=== PATIENT | female | born 1995 | race Caucasian/White ===

== ENCOUNTER → 2016-07-11 | Outpatient (CLI) | payer BC, OTHER ==
--- NOTE | 2016-07-12 08:18 | MR ---
EXAMINATION TYPE: MR cervical spine wo/w con DATE OF EXAM: 07/11/2016 2:35 PM COMPARISON: NONE HISTORY: 21-year-old female with upper and lower extremity paresthesia, numbness in arms and legs, he adache. Technique: Multiplanar, multisequence images of the cervical spine were obtained before and after adm inistration of 12 mL intravenous MultiHance gadolinium contrast. FINDINGS: There is some rightward tilt of the head which may be positional. Correlate to exclude a levoconvex s coliosis of the thoracic spine. Alignment is maintained. No craniocervical junction abnormality, predental space widening, or prevertebral soft tissue swellin g. No suspicious bone marrow replacement. No focal disc herniation or significant degenerative change seen. No significant spinal canal or neuroforaminal stenosis. Normal course, caliber, and signal intensity of the cervical cord. No abnormal enhancement within the spinal canal. IMPRESSION: 1. Rightward tilt of the patient's head may be positional. Correlate to exclude a levoconvex scoliosi s of the thoracic spine. 2. Otherwise, unremarkable MRI of the cervical spine.
== END | disposition home or self-care (01) ==
LOC: RADMRIMAIN 13:36
PROVIDERS: ATTEND Psychiatry & Neurology Neurology
DX: R20.8 Other disturbances of skin sensation (principal); R27.0 Ataxia, unspecified
CPT/HCPCS: 72156; A9577

== ENCOUNTER 2016-07-15 21:30 | Emergency (ER) | payer BC, OTHER ==
[2016-07-15 22:00] VITALS: BP 115/68; PULSE 69; RESP 20; TEMP 98
--- NOTE | 2016-07-15 22:07 | ED ---
Fall HPI - General Chief Complaint: Fall Stated Complaint: rib injury Time Seen by Provider: 07/15/16 22:02 Source: patient, RN notes reviewed Mode of arrival: ambulatory - History of Present Illness Initial Comments: 21-year-old female presents emergency Department chief complaint of right-sided rib pain. A week ago patient fell down some stairs at a concert and hit the right side of her ribs on the armrest. Patient patient she has pain. Worse when she takes a deep breath. Patient states her to touch. Patient states that she was concerned due to her history continued pain so she thought that she should be evaluated. Patient denies any recent fever, chills, shortness of breath, chest pain, back pain, abdominal pain, nausea vomiting, numbness or tingling, dysuria or hematuria, constipation or diarrhea, headaches or visual changes, or any other current symptoms. - Related Data Home Medications Medication Instructions Recorded Confirmed Ibuprofen [Motrin] 600 mg PO Q3HR PRN 07/15/16 07/15/16 Previous Rx's Medication Instructions Recorded Hydrocodone/Acetaminophen [Nutley 1 each PO Q6HR PRN #20 tab 07/15/16 5-325] Allergies Allergy/AdvReac Type Severity Reaction Status Date / Time No Known Allergies Allergy Verified 07/15/16 22:20 Review of Systems ROS Statement: Those systems with pertinent positive or pertinent negative responses have been documented in the HPI. ROS Other: All systems not noted in ROS Statement are negative. Past Medical History Additional Past Medical History / Comment(s): Factor V Leiden deficiency , preeclampsia History of Any Multi-Drug Resistant Organisms: None Reported Past Surgical History: Appendectomy Additional Past Surgical History / Comment(s): BMT- CHILD Past Anesthesia/Blood Transfusion Reactions: No Reported Reaction Additional Past Anesthesia/Blood Transfusion Reaction / Comment(s): no hx of blood transfusion Past Psychological History: ADD/ADHD Smoking Status: Former smoker Past Alcohol Use History: Occasional Additional Past Alcohol Use History / Comment(s): QUIT SMOKING 2014. ONLY SMOKED < 1 PP WEEK FOR ABOUT 1 YRS. RECETNLY SEEN IN ER 10/2015 FOR ETOH-SERUM ALCOHOL LEVEL 212 Past Drug Use History: None Reported - Past Family History Mother Sister(s) Additional Family Medical History / Comment(s): mom and sister have factor v as well General Exam Limitations: no limitations General appearance: alert, in no apparent distress Head exam: Present: atraumatic, normocephalic, normal inspection ENT exam: Present: normal exam, mucous membranes moist Neck exam: Present: normal inspection. Absent: tenderness, meningismus, lymphadenopathy Respiratory exam: Present: normal lung sounds bilaterally, chest wall tenderness (Along the right lateral chest). Absent: respiratory distress, wheezes, rales, rhonchi, stridor Cardiovascular Exam: Present: regular rate, normal rhythm, normal heart sounds. Absent: systolic murmur, diastolic murmur, rubs, gallop, clicks Back exam: Present: normal inspection Neurological exam: Present: alert, oriented X3 Psychiatric exam: Present: normal affect, normal mood Skin exam: Present: warm, dry, intact, normal color. Absent: rash Course Vital Signs 07/15/16 21:54 Temperature 98 F Pulse Rate 69 Respiratory 20 Rate Blood Pressure 115/68 O2 Sat by Pulse 100 Oximetry Medical Decision Making - Medical Decision Making 21-year-old female presents for right-sided rib pain after a fall. This time patient underwent an x-ray. This time x-ray does not show any acute fractures. At this time we discussed to give her narcotic we discussed icing the area. We discussed follow-up and return parameters. He stated that she understood all her questions have been answered. She will be discharged. - Radiology Data Radiology results: report reviewed, image reviewed Disposition Clinical Impression: Fall, Contusion of rib on right side Disposition: HOME SELF-CARE Condition: Stable Instructions: Rib Contusion (ED) Additional Instructions: Please use medication as discussed. Please follow up with family doctor if symptoms have not improved over the next two days. Please return to the emergency room if your symptoms increase or worsen or for any other concerns. Prescriptions: Hydrocodone/Acetaminophen [Nutley 5-325] 1 each PO Q6HR PRN #20 tab PRN Reason: Pain Referrals: Eula Lopez MD [Primary Care Provider] - 1-2 days Time of Disposition: 22:27
--- NOTE | 2016-07-15 22:24 | XR ---
EXAMINATION TYPE: XR ribs RT w pa chest xray DATE OF EXAM: 07/15/2016 10:15 PM COMPARISON: NONE HISTORY: ] Pain anterior to posterior after a fall TECHNIQUE: 3 views FINDINGS: Negative for fracture or pneumothorax or pleural effusion. No incidental findings. IMPRESSION: Negative examination.
== END 2016-07-15 22:31 | disposition home or self-care (01) ==
LOC: EC 21:30
DX: S20.211A Contusion of right front wall of thorax, initial encounter (principal); Z87.891 Personal history of nicotine dependence; W10.9XXA Fall (on) (from) unspecified stairs and steps, initial encounter; Y92.009 Unspecified place in unspecified non-institutional (private) residence as the place of occurrence of the external cause
CPT/HCPCS: 99284

== ENCOUNTER → 2020-05-28 | Outpatient (CLI) | payer MEDICAID | END | disposition home or self-care (01) | LOC: LABMAIN 23:23 | PROVIDERS: ATTEND Emergency Medicine | DX: Z20.822 Contact with and (suspected) exposure to COVID-19 (principal) | CPT/HCPCS: 87635 ==

== ENCOUNTER 2020-09-03 16:43 | Emergency (ER) | payer MEDICAID ==
[2020-09-03 16:56] VITALS: PULSE 71; RESP 16; TEMP 98.2
[2020-09-03] MEDS ORDERED: SODIUM CHLORIDE 0.9% 500 ML 500 ML IV STA (17:25)
--- NOTE | 2020-09-03 17:48 | ED ---
General Adult HPI - General Chief complaint: Recheck/Abnormal Lab/Rx Stated complaint: ectopic Source: patient, family, RN notes reviewed Mode of arrival: ambulatory Limitations: no limitations - History of Present Illness Initial comments: 25-year-old well-appearing white female presents to the emergency room with complaints of a possible ectopic on the right. Patient states 2 weeks ago she seen a primary care office and was told that they seen something in the right fallopian tube and had her come back in 2 days for reassessment. She went back he was resolved and he didn't see it. Today she was in the office and they did another ultrasound because she's been having cramping and they found again concern for ectopic . Patient states that she's been having cramping feelings on and off for the past 2 weeks. Patient denies any vaginal bleeding or vaginal discharge. Her last menstrual period was July 07. Patient has a history of factor V leiden deficiency, preeclampsia with previous , has a surgical history of an appendectomy. Patient brought in paperwork from Dr. Huber has had states that there is a pole measuring 3.1 x 2 x 2.8 and was offered surgery or methotrexate. She states that her insurance is [employer] and all she was at [facility] they told her she needed to come here. Patient is willing to have a repeat ultrasound and lab work. Her biggest concern is that she does not want to lose her fallopian tube -: week(s) (2) Location: abdomen Radiation: non-radiation Severity scale (1-10): 2 Quality: other Consistency: intermittent Improves with: none Worsens with: none Associated Symptoms: denies other symptoms Treatments Prior to Arrival: other (Ultrasound at Dr. Huber's office) - Related Data Home Medications Medication Instructions Recorded Confirmed Ibuprofen [Motrin] 600 mg PO Q3HR PRN 07/15/16 07/15/16 Previous Rx's Medication Instructions Recorded Hydrocodone/Acetaminophen [R[place]ledge 1 each PO Q6HR PRN #20 tab 07/15/16 5-325] Allergies Allergy/AdvReac Type Severity Reaction Status Date / Time No Known Allergies Allergy Verified 07/15/16 22:20 Review of Systems ROS Statement: Those systems with pertinent positive or pertinent negative responses have been documented in the HPI. ROS Other: All systems not noted in ROS Statement are negative. Past Medical History Additional Past Medical History / Comment(s): Factor V Leiden deficiency , preeclampsia History of Any Multi-Drug Resistant Organisms: None Reported Past Surgical History: Appendectomy Additional Past Surgical History / Comment(s): BMT- CHILD Past Anesthesia/Blood Transfusion Reactions: No Reported Reaction Additional Past Anesthesia/Blood Transfusion Reaction / Comment(s): no hx of blood transfusion Past Psychological History: ADD/ADHD Smoking Status: Never smoker Past Alcohol Use History: Occasional Past Drug Use History: None Reported - Past Family History Mother Sister(s) Additional Family Medical History / Comment(s): mom and sister have factor v as well General Exam Limitations: no limitations General appearance: alert, in no apparent distress Head exam: Present: atraumatic, normocephalic, normal inspection Eye exam: Present: normal appearance, PERRL, EOMI. Absent: scleral icterus, conjunctival injection, periorbital swelling ENT exam: Present: normal exam, normal oropharynx, mucous membranes moist Neck exam: Present: normal inspection. Absent: tenderness, meningismus, lympha denopathy Respiratory exam: Present: normal lung sounds bilaterally. Absent: respiratory distress, wheezes, rales, rhonchi, stridor, chest wall tenderness, accessory muscle use, decreased breath sounds Cardiovascular Exam: Present: regular rate, normal rhythm, normal heart sounds. Absent: systolic murmur, diastolic murmur, rubs, gallop, clicks GI/Abdominal exam: Present: soft, normal bowel sounds. Absent: distended, te nderness, guarding, rebound, rigid Extremities exam: Present: normal inspection, full ROM, normal capillary refill. Absent: tenderness, pedal edema, joint swelling, calf tenderness Back exam: Present: normal inspection Neurological exam: Present: alert, oriented X3, CN II-XII intact Psychiatric exam: Present: normal affect, normal mood Skin exam: Present: warm, dry, intact, normal color. Absent: rash, cyanosis, diaphoretic, erythema, petechiae, pallor, mottled Course Vital Signs 09/03/20 16:54 Temperature 98.2 F Pulse Rate 71 Respiratory 16 Rate Blood Pressure 122/84 O2 Sat by Pulse 100 Oximetry Medical Decision Making - Medical Decision Making Transvaginal and transabdominal ultrasound shows a questionable area of mixed echogenicity seen within the right ovary measuring 3 x 2.1 x 2.0. There is no pole visualized, yolk sac is not seen. There is a small intrauterine fluid collection measuring 14 x 9 mm which could be a gestational sac but there is no yolk sac or pole seen. there is bilateral free fluid in the pelvis. An early ectopic is not excluded at [place] [address].6. Her beta count from previous records August 29 was 4712. Her last menstrual period 07/07/2020. Patient denies any vaginal bleeding at this time and was offered surgical intervention or methotrexate. Patient has prescription for the methotrexate but has [facility] insurance and is why she came to the emergency room. Spoke with Dr. Gillespie was recommended that the patient follow-up with her doctor in the morning and have the methotrexate called into the infusion center. Patient directed to return to emergency room if she develops any pain or vaginal bleeding. Vital signs are stable. Patient appears comfortable. Patient and significant other is comfortable with this discharge instructions. Dr. Jeffers aware and agreeable to this plan. - Lab Data Result diagrams: 09/03/20 17:38 09/03/20 17:38 Lab Results 09/03/20 09/03/20 09/03/20 Range/Units 17:38 17:38 17:38 WBC 8.4 (3.8-10.6) k/uL RBC 3.78 L (3.80-5.40) m/uL Hgb 12.1 (11.4-16.0) gm/dL Hct 34.0 (34.0-46.0) % MCV 89.9 (80.0-100.0) fL MCH 32.1 (25.0-35.0) pg MCHC 35.7 (31.0-37.0) g/dL RDW 12.5 (11.5-15.5) % Plt Count 217 (150-450) k/uL MPV 7.1 Neutrophils % 54 % Lymphocytes % 36 % Monocytes % 4 % Eosinophils % 4 % Basophils % 1 % Neutrophils # 4.5 (1.3-7.7) k/uL Lymphocytes # 3.0 (1.0-4.8) k/uL Monocytes # 0.4 (0-1.0) k/uL Eosinophils # 0.3 (0-0.7) k/uL Basophils # 0.0 (0-0.2) k/uL PT 10.6 (9.0-12.0) sec INR 1.0 (<1.2) Sodium 137 (137-145) mmol/L Potassium 3.8 (3.5-5.1) mmol/L Chloride 108 H (98-107) mmol/L Carbon Dioxide 21 L (22-30) mmol/L Anion Gap 8 mmol/L BUN 10 (7-17) mg/dL Creatinine 0.56 (0.52-1.04) mg/dL Est GFR (CKD-EPI)AfAm >90 (>60 ml/min/1.73 sqM) Est GFR (CKD-EPI)NonAf >90 (>60 ml/min/1.73 sqM) Glucose 90 (74-99) mg/dL Calcium 9.6 (8.4-10.2) mg/dL Total Bilirubin 0.3 (0.2-1.3) mg/dL AST 28 (14-36) U/L ALT 12 (4-34) U/L Alkaline Phosphatase 44 (38-126) U/L Total Protein 6.7 (6.3-8.2) g/dL Albumin 4.3 (3.5-5.0) g/dL HCG, Quant 03386.6 mIU/mL Blood Type Blood Type Recheck Bld Type Recheck Status Antibody Screen Spec Expiration Date 09/03/20 09/03/20 Range/Units 17:38 17:38 WBC (3.8-10.6) k/uL RBC (3.80-5.40) m/uL Hgb (11.4-16.0) gm/dL Hct (34.0-46.0) % MCV (80.0-100.0) fL MCH (25.0-35.0) pg MCHC (31.0-37.0) g/dL RDW (11.5-15.5) % Plt Count (150-450) k/uL MPV Neutrophils % % Lymphocytes % % Monocytes % % Eosinophils % % Basophils % % Neutrophils # (1.3-7.7) k/uL Lymphocytes # (1.0-4.8) k/uL Monocytes # (0-1.0) k/uL Eosinophils # (0-0.7) k/uL Basophils # (0-0.2) k/uL PT (9.0-12.0) sec INR (<1.2) Sodium (137-145) mmol/L Potassium (3.5-5.1) mmol/L Chloride (98-107) mmol/L Carbon Dioxide (22-30) mmol/L Anion Gap mmol/L BUN (7-17) mg/dL Creatinine (0.52-1.04) mg/dL Est GFR (CKD-EPI)AfAm (>60 ml/min/1.73 sqM) Est GFR (CKD-EPI)NonAf (>60 ml/min/1.73 sqM) Glucose (74-99) mg/dL Calcium (8.4-10.2) mg/dL Total Bilirubin (0.2-1.3) mg/dL AST 27 (14-36) U/L ALT 12 (4-34) U/L Alkaline Phosphatase (38-126) U/L Total Protein (6.3-8.2) g/dL Albumin (3.5-5.0) g/dL HCG, Quant mIU/mL Blood Type A Positive Blood Type Recheck A Pos Bld Type Recheck Status No Antibody Screen NEGATIVE Spec Expiration Date 09/06/20202337 Disposition Clinical Impression: Ectopic Disposition: HOME SELF-CARE Condition: Fair Instructions (If sedation given, give patient instructions): Ectopic (DC) Additional Instructions: Return to the emergency room if he develops any abdominal pain. Follow-up with Dr. Huber in the morning and have her call in the prescription for methotrexate to the infusion center. Is patient prescribed a controlled substance at d/c from ED?: No Referrals: Eula Lopez MD [Primary Care Provider] - 1-2 days Miranda Huber MD [STAFF PHYSICIAN] - 1-2 days Time of Disposition: 20:54
[2020-09-03 17:59] LABS: Basophils % (A) 1 %; Eosinophils # (A) 0.3 k/uL (0-0.7); Eosinophils % (A) 4 %; HGB 12.1 gm/dL (11.4-16.0); Lymphocytes % (A) 36 %; MCH 32.1 pg (25.0-35.0); MCHC 35.7 g/dL (31.0-37.0); MCV 89.9 fL (80.0-100.0); Mean Platelet Volume 7.1; Monocytes # (A) 0.4 k/uL (0-1.0); Monocytes % (A) 4 %; Neutrophils # (A) 4.5 k/uL (1.3-7.7); Neutrophils % (A) 54 %; Platelet Count 217 k/uL (150-450); RBC 3.78 m/uL (3.80-5.40); RDW 12.5 % (11.5-15.5); WBC 8.4 k/uL (3.8-10.6)
[2020-09-03 18:07] LABS: Prothrombin Time 10.6 sec (9.0-12.0)
[2020-09-03 18:11] LABS: ALT 12 U/L (4-34); AST 28 U/L (14-36); African American GFR (CKD) >90 (>60 ml/min/1.73 sqM); Albumin 4.3 g/dL (3.5-5.0); Alkaline Phosphatase 44 U/L (38-126); Anion Gap 8 mmol/L; Blood Urea Nitrogen 10 mg/dL (7-17); Calcium 9.6 mg/dL (8.4-10.2); Carbon Dioxide 21 mmol/L (22-30); Chloride 108 mmol/L (98-107); Glucose 90 mg/dL (74-99); Non-African American GFR(CKD) >90 (>60 ml/min/1.73 sqM); Potassium 3.8 mmol/L (3.5-5.1); Sodium 137 mmol/L (137-145); Total Bilirubin 0.3 mg/dL (0.2-1.3); Total Protein 6.7 g/dL (6.3-8.2)
[2020-09-03 18:28] LABS: HCG,Quantitative Serum 13791.6 mIU/mL
--- NOTE | 2020-09-03 19:36 | US ---
EXAMINATION TYPE: Transabdominal DATE OF EXAM: 09/03/2020 7:12 PM COMPARISON: US CLINICAL HISTORY: Rule out ectopic. Pain. Rule out ectopic. Hx miscarriage, D and C. . EXAM PERFORMED: Transvaginal (TV) and Transabdominal (TA) EXAM MEASUREMENTS: GESTATIONAL AGE / DATING Physician Established: Not yet established. Dates by LMP: (8 weeks/2 days) EDC: 04/13/2021 Dates by First Scan: This is first scan at this facility for this . Dates by Current Scan for: (5 weeks/1 day) EDC: 05/05/2021 MATERNAL ANATOMY Uterus: 7.3 x 6.0 x 4.5 cm. Retroverted. Subcentimeter anechoic area seen in cervix. Right Ovary: 3.4 x 2.6 x 2.3 cm. *Questionable area of mixed echogenicity seen within the right ovary: 3.0 x 2.1 x 2.0 cm. This area s hows vascularity, anechoic component, and indistinct hyperechoic components within anechoic area. Left Ovary: 3.3 x 1.8 x 1.5 cm. Subcentimeter anechoic areas seen. Post CDS / Adnexa: Fluid seen in right adnexa: 3.6 x 1.6 x 0.9 cm. Fluid seen in left adnexa: 5.0 x 1 .2 x 1.5 cm. There appear to be hyperechoic areas moving within the fluid, possible bowel within left adnexal fluid. Presence of free fluid: Yes. Presence of corpus luteal cyst: Possible within right ovary versus other diagnosis. Presence of subchorionic bleed: Not seen. GESTATION / SURVEY CRL: No pole visualized at this time. MSD: 1.09 cm. (5 weeks/1 day) Yolk Sac (normal less than 6mm): Not seen. IUP: Gestational sac seen only at this time. *Questionable area of mixed echogenicity and vascularity seen within the right ovary as mentioned ab ove. Exam reason: rule out ectopic . Date of LMP: 07/07/2020 Beta HcG (if available): 13,791.6 mIU/mL IMPRESSION: There is small intrauterine fluid collection measuring 14 x 9 mm. This could be a gestational sac. No yolk sac or pole seen. Bilateral free fluid in the pelvis. Bilateral adnexal findings as above. No definite sign of ectopic gestational sac. Follow-up recommended in 7-10 days to confirm a living fetus. Blighted ovum is possi ble. Early ectopic is not excluded by this exam.
[2020-09-03 20:01] LABS: ALT 12 U/L (4-34); AST 27 U/L (14-36)
[2020-09-03 21:13] VITALS: BP 129/95
== END 2020-09-03 21:13 | disposition home or self-care (01) ==
LOC: EC 16:43
DX: O00.90 Unspecified ectopic pregnancy without intrauterine pregnancy (principal); Z3A.01 Less than 8 weeks gestation of pregnancy
CPT/HCPCS: 36415; 76801; 76817; 80053; 84450; 84460; 84702; 85025; 85610; 86850; 86900; 86901; 96360; 99284

== ENCOUNTER 2020-09-06 12:04 | Observation (INO) | payer MEDICAID ==
[~2020-09-06 12:04] MED LIST: HYDROcodone/APAP 5-325MG 1 EACH TAB PO ONE
[2020-09-06] MEDS ORDERED: NALOXONE 0.4 MG/ML 1 ML VIAL IV PRN (13:10)
--- NOTE | 2020-09-06 13:11 | ED ---
Abdominal Pain HPI - General Chief Complaint: Abdominal Pain Stated Complaint: Ectopic Time Seen by Provider: 09/06/20 12:24 Source: patient, RN notes reviewed Mode of arrival: ambulatory Limitations: no limitations - History of Present Illness Initial Comments: Patient is a 25-year-old female that presents to emergency department for ectopic . She was sent here by her primary care due to continued elevated hCG levels with a suspicious spot on ultrasound in her right side pelvis. She noted her primary care called Dr. Segovia and informed her of the issue. Patient was originally prescribed methotrexate but due to insurance issues and going back and forth between primary care in the hospital the window for that has closed in a laparoscopic procedures needed. Patient is okay and is informed that she will need surgery. She denied any other complaints or issues at this time. - Related Data Home Medications Medication Instructions Recorded Confirmed Ibuprofen [Motrin] 600 mg PO Q3HR PRN 07/15/16 07/15/16 Previous Rx's Medication Instructions Recorded Hydrocodone/Acetaminophen [Pearson 1 each PO Q6HR PRN #20 tab 07/15/16 5-325] Allergies Allergy/AdvReac Type Severity Reaction Status Date / Time No Known Allergies Allergy Verified 09/06/20 12:12 Review of Systems ROS Statement: Those systems with pertinent positive or pertinent negative responses have been documented in the HPI. ROS Other: All systems not noted in ROS Statement are negative. Past Medical History Past Medical History: No Reported History Additional Past Medical History / Comment(s): Factor V Leiden deficiency , preeclampsia History of Any Multi-Drug Resistant Organisms: None Reported Past Surgical History: Appendectomy Additional Past Surgical History / Comment(s): BMT- CHILD Past Anesthesia/Blood Transfusion Reactions: No Reported Reaction Additional Past Anesthesia/Blood Transfusion Reaction / Comment(s): no hx of blood transfusion Past Psychological History: ADD/ADHD Smoking Status: Never smoker Past Alcohol Use History: Occasional Past Drug Use History: None Reported - Past Family History Mother Sister(s) Additional Family Medical History / Comment(s): mom and sister have factor v as well General Exam Limitations: no limitations General appearance: alert, in no apparent distress Head exam: Present: atraumatic, normocephalic, normal inspection Eye exam: Present: normal appearance, PERRL, EOMI. Absent: scleral icterus, conjunctival injection, periorbital swelling Neck exam: Present: normal inspection Respiratory exam: Present: normal lung sounds bilaterally. Absent: respiratory distress, wheezes, rales, rhonchi, stridor Cardiovascular Exam: Present: regular rate, normal rhythm, normal heart sounds. Absent: systolic murmur, diastolic murmur, rubs, gallop, clicks GI/Abdominal exam: Present: soft, tenderness (Lower abdomen), normal bowel sounds. Absent: distended, guarding, rebound, rigid Extremities exam: Present: normal inspection, full ROM, normal capillary refill. Absent: tenderness, pedal edema, joint swelling, calf tenderness Neurological exam: Present: alert, oriented X3 Psychiatric exam: Present: normal affect, normal mood Skin exam: Present: warm, dry, intact, normal color. Absent: rash Course Vital Signs 09/06/20 12:13 Temperature 98.0 F Pulse Rate 75 Respiratory 18 Rate Blood Pressure 114/81 O2 Sat by Pulse 100 Oximetry Medical Decision Making - Medical Decision Making 25-year-old female coming in for admission due to ectopic . Dr. Segovia consulted and instructed we order basic labs with her on file and to get her admitted for surgery later this afternoon. Case discussed with Dr. Sosa, he is agreeable with this plan. Labs ordered. Patient declined the need for any pain medication at this time as she was okay and it was tolerable. Disposition Clinical Impression: Ectopic Disposition: ADMITTED IP TO THIS [facility] Condition: Stable Is patient prescribed a controlled substance at d/c from ED?: No Referrals: Eula Lopez MD [Primary Care Provider] - 1-2 days Time of Disposition: 13:10
[2020-09-06 13:15] LABS: Basophils % (A) 0 %; Eosinophils # (A) 0.3 k/uL (0-0.7); Eosinophils % (A) 3 %; HCT 34.6 % (34.0-46.0); HGB 12.3 gm/dL (11.4-16.0); Lymphocytes # (A) 2.6 k/uL (1.0-4.8); Lymphocytes % (A) 31 %; MCH 31.7 pg (25.0-35.0); MCHC 35.5 g/dL (31.0-37.0); MCV 89.5 fL (80.0-100.0); Mean Platelet Volume 7.1; Monocytes # (A) 0.4 k/uL (0-1.0); Monocytes % (A) 4 %; Neutrophils # (A) 5.1 k/uL (1.3-7.7); Neutrophils % (A) 61 %; Platelet Count 218 k/uL (150-450); RBC 3.87 m/uL (3.80-5.40); RDW 12.7 % (11.5-15.5); WBC 8.5 k/uL (3.8-10.6)
[2020-09-06 13:26] LABS: ALT 12 U/L (4-34); AST 26 U/L (14-36); African American GFR (CKD) >90 (>60 ml/min/1.73 sqM); Albumin 4.2 g/dL (3.5-5.0); Alkaline Phosphatase 42 U/L (38-126); Anion Gap 9 mmol/L; Blood Urea Nitrogen 10 mg/dL (7-17); Calcium 9.2 mg/dL (8.4-10.2); Carbon Dioxide 20 mmol/L (22-30); Chloride 108 mmol/L (98-107); Glucose 88 mg/dL (74-99); Non-African American GFR(CKD) >90 (>60 ml/min/1.73 sqM); Potassium 3.7 mmol/L (3.5-5.1); Sodium 137 mmol/L (137-145); Total Bilirubin 0.2 mg/dL (0.2-1.3); Total Protein 6.7 g/dL (6.3-8.2)
[2020-09-06 13:28] LABS: INR 0.9 (<1.2); Partial Thromboplastin Time 23.5 sec (22.0-30.0); Prothrombin Time 9.8 sec (9.0-12.0)
--- NOTE | 2020-09-06 13:38 | P.HPOB ---
History of Present Illness H&P Date: 09/06/20 Chief Complaint: Ectopic This is a 25-year-old 4 para 0121 that has been being seen at [facility] followed by Dr. Huber. Patient states about 2 weeks ago she was seen by Dr. Huber had an ultrasound for known , positive gestational sac was appreciated and a small right ovarian cyst was noted. She underwent follow- up ultrasound with resolution of the cyst. Patient was once again seen on Wednesday of this week with a right-sided mass being appreciated patient was diagnosed with ectopic , offered methotrexate. Patient presented to [facility] for a second opinion ultrasound was negative therefore patient declined methotrexate treatment. Patient had noted elevation of her beta hCG to 13,000, patient states "it tripled". Patient was then seen on Wednesday at [facility] once again ultrasound was noted to be negative, after she left the appointment at [facility] for her ultrasound she noted increased right- sided pain. Patient had an additional ultrasound today at [facility] revealing a 3.2 cm right adnexal mass. No free fluid was appreciated. Patient states she has increasing right lower quadrant pain. 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 2 prior miscarriages Current ectopic Review of Systems Constitutional: Denies fatigue, Denies fever Ears, nose, mouth and throat: Denies headache Cardiovascular: Reports leg edema Respiratory: Denies dyspnea Gastrointestinal: Denies constipation, Denies diarrhea, Denies nausea, Denies vomiting Genitourinary: Reports as per HPI, Reports Past Medical History Past Medical History: No Reported History Additional Past Medical History / Comment(s): Factor V Leiden deficiency , preeclampsia History of Any Multi-Drug Resistant Organisms: None Reported Past Surgical History: Appendectomy Additional Past Surgical History / Comment(s): BMT- CHILD Past Anesthesia/Blood Transfusion Reactions: No Reported Reaction Additional Past Anesthesia/Blood Transfusion Reaction / Comment(s): no hx of blood transfusion Past Psychological History: ADD/ADHD Smoking Status: Never smoker Past Alcohol Use History: Occasional Past Drug Use History: None Reported - Past Family History Mother Sister(s) Additional Family Medical History / Comment(s): mom and sister have factor v as well Medications and Allergies Home Medications Medication Instructions Recorded Confirmed Type Dextroamphetamine/Amphetamine 30 mg PO DAILY PRN 09/06/20 09/06/20 History [Adderall Xr] Allergies Allergy/AdvReac Type Severity Reaction Status Date / Time No Known Allergies Allergy Verified 09/06/20 13:19 Exam Osteopathic Statement: *. No significant issues noted on an osteopathic structural exam other than those noted in the History and Physical/Consult. Vital Signs Temp Pulse Resp BP Pulse Ox 09/06/20 12:13 98.0 F 75 18 114/81 100 Intake and Output 09/05/20 09/06/20 09/06/20 22:59 06:59 14:59 Other: Weight 68.039 kg Targeted physical exam is performed and is on this date in general this is a well-nourished well-developed female in no acute distress, breathing is noted to be nonlabored, heart has a regular rate and rhythm, abdomen appears soft, pelvic exam is deferred. Patient did have a benign exam with Dr. Huber today in the office. Results Result Diagrams: 09/06/20 13:00 09/06/20 13:07 Assessment and Plan (1) Ectopic Current Visit: Yes Status: Acute Code(s): O00.90 - UNSPECIFIED ECTOPIC WITHOUT INTRAUTERINE SNOMED Code(s): 54610380 (2) Factor V Leiden deficiency Current Visit: No Status: Chronic Code(s): D68.51 - ACTIVATED PROTEIN C RESISTANCE Plan: 25-year-old 4 para 0121 that presents from [facility] with known ectopic . Patient has been seeing Dr. Huber for management of this ectopic . Patient has [employer] insurance and stated she would rather have surgery at [facility]. Patient has significantly elevated beta hCG of 13,042, 3.2 cm right adnexal mass is appreciated in addition. Dr. Huber states there is no free fluid appreciated in the pelvis. Patient appears stable on exam. Recommend operative laparoscopy with a small right salpingectomy, patient is counseled on risks of surgery including but not limited to infection, bleeding, damage to bladder, bowel, ureteric injury. Decreases infertility with removal of fallopian tube are discussed. Patient and significant other stated understanding. Multiple questions are answered. Patient states understanding and wishes to proceed with surgical intervention of her ectopic .
[2020-09-06] MEDS ORDERED: IBUPROFEN IV 800 MG in SODIUM CHLORIDE 0.9% 250 ML IV ONE (14:00)
[2020-09-06] MEDS ORDERED: LACTATED RINGERS 1,000 ML IV ONE ×2 (15:17→17:45)
[2020-09-06 15:19] VITALS: RESP 16
[2020-09-06] MEDS ORDERED: ONDANSETRON 4 MG/2 ML VIAL ONE (15:41)
[2020-09-06] MEDS ORDERED: ONDANSETRON 4 MG/2 ML VIAL IVP ONE (15:45)
[2020-09-06] MEDS ORDERED: DEXAMETHASONE SOD PHOSPHATE 4 MG/ML 1 ML VIAL IVP ONE (15:45)
[2020-09-06] MEDS ORDERED: PROPOFOL 10 MG/ML 20 ML VIAL IV ONE (15:47)
[2020-09-06] MEDS ORDERED: MIDAZOLAM 2 MG/2 ML VIAL ONE (15:47)
[2020-09-06] MEDS ORDERED: GLYCOPYRROLATE 0.2 MG/ML 2 ML VIAL ONE (15:47)
[2020-09-06] MEDS ORDERED: NEOSTIGMINE 1 MG/ML 10 ML VIAL ONE (15:47)
[2020-09-06] MEDS ORDERED: fentaNYL (PF) 50 MCG/ML 2 ML AMP ONE (15:47)
[2020-09-06] MEDS ORDERED: LIDOCAINE 1% INJ 10MG/ML (20 ML MDV) ONE (15:47)
[2020-09-06] MEDS ORDERED: ROCURONIUM 10 MG/ML (5 ML VIAL) IV ONE (15:47)
[2020-09-06] MEDS ORDERED: SUCCINYLCHOLINE CHLORIDE 100 MG/5 ML SYR IV ONE (15:47)
[2020-09-06] MEDS ORDERED: HYDROmorphone (PF) 1 MG/ML ONE (15:47)
[2020-09-06] MEDS ORDERED: BUPIVACAINE (PF) 0.25% 30 ML VIAL SQ ONE ×2 (16:04)
[2020-09-06] MEDS ORDERED: SODIUM CHLORIDE 0.9% 100 ML with ceFAZolin 2,000 MG IV ONE ×2 (16:30)
[2020-09-06 16:53] VITALS: TEMP 97
[2020-09-06] MEDS ORDERED: HYDROmorphone 0.5 MG/0.5 ML SYRINGE IVP ONE ×2 (17:08→17:55)
[2020-09-06] MEDS ORDERED: METHOTREXATE SODIUM (PF) 25 MG/ML 2 ML VIAL IM ONE (17:30)
--- NOTE | 2020-09-06 17:35 | P.OP ---
Date of Procedure: 09/06/20 Preoperative Diagnosis: Ectopic Postoperative Diagnosis: Blighted ovum with corpus luteum Procedure(s) Performed: Diagnostic laparoscopy with suction dilation and curettage Anesthesia: CAT Surgeon: Karrie Jerome [employer] Service Technician #1: Venkatesh Gillespie Estimated Blood Loss (ml): 5 IV fluids (ml): 700 Urine output (ml): 100 Pathology: other (Uterine contents) Condition: stable Disposition: PACU Indications for Procedure: This is a 25-year-old that presented from [facility] with diagnosis of ectopic . Patient is a patient of Dr. Huber who stated she has been watching the patient and now has diagnosed her with an ectopic . Patient's quantitative beta hCG had risen to over 13,000, 6 week empty gestational sac was noted within the uterus. Patient was noted to have increasing right lower quadrant pain. On the right ovary there was a cystic change. Patient counseled by Dr. Huber about the need for operative laparoscopy given her presumption of ectopic . Patient wished to have surgery given Dr. Huber's recommendation. Operative Findings: Normal pelvic anatomy was appreciated. Both fallopian tubes appeared normal. The right ovary was normal with corpus luteum appreciated. There was no blood in the abdomen. The upper abdomen was visualized and normal. Description of Procedure: Patient was taken back to the operating suite where general anesthesia was obtained without difficulty by the anesthesia department. She was prepped and draped in the normal sterile fashion in the dorsal lithotomy position. A red rubber catheter was used to drain the bladder of clear yellow urine. A speculum was placed the cervix was visualized and grasped with a single-tooth tenaculum. An acorn uterine manipulator was advanced into the cervix as a means to manipulate the uterus throughout the procedure. Attention was then turned the patient's abdomen where in the umbilical fold a small skin incision is made. Through this incision the Veress needle is placed. Once the Veress needle was deemed to be in the proper position with a drop of CO2 pressure with insufflation of CO2 gas CO2 insufflation was allowed to occur. 3.5 L of gas were used to obtain pneumoperitoneum. At this time a 5 mm trocar and sleeve with the laparoscope in place was placed through the skin incision and toward t he pneumoperitoneum. The above-noted findings are visualized. For further visualization and additional port site is placed in the right mid abdomen. This is a 5 mm ports and placed under direct visualization. Both ovaries were visualized and found to be normal in nature. The right ovary as stated above has a corpus luteum. Both fallopian tubes appeared normal. There was no blood in the pelvis. Multiple pictures were taken and the laparoscope was removed. The skin incisions were closed with 4-0 Vicryl in a subcuticular fashion. Steri-Strips and sterile dressings were applied after instillation of lidocaine. Attention was then turned to the patient's vaginal vault where the acorn uterine manipulator was removed and the cervix was serially dilated. An 8 mm curved curette was placed through the cervix and toward the endometrial cavity. The gestational sac was removed. The uterus was noted to be firm after the procedure. Patient was noted have minimal bleeding. The cervix was noted to be hemostatic after the cecal tooth tenaculum was removed. All counts were noted be correct 2 at the end of the procedure. Patient did tolerate procedure well and was taken the recovery room awake in stable condition.
[2020-09-06 17:58] VITALS: PULSE 59
[2020-09-06 18:07] VITALS: BP 93/50
[2020-09-06] MEDS ORDERED: HYDROcodone/APAP 5-325MG 1 EACH TAB ONE (18:09)
== END 2020-09-06 18:46 | disposition home or self-care (01) ==
LOC: EC 12:04 → 4FBP 12:50
PROVIDERS: ADMIT Obstetrics & Gynecology Obstetrics; ATTEND Obstetrics & Gynecology Obstetrics
DX: O02.0 Blighted ovum and nonhydatidiform mole (principal); F90.9 Attention-deficit hyperactivity disorder, unspecified type; Z90.49 Acquired absence of other specified parts of digestive tract; Z83.2 Family history of diseases of the blood and blood-forming organs and certain disorders involving the immune mechanism; Z87.59 Personal history of other complications of pregnancy, childbirth and the puerperium; Z79.899 Other long term (current) drug therapy; N83.10 Corpus luteum cyst of ovary, unspecified side; Z20.822 Contact with and (suspected) exposure to COVID-19
CPT/HCPCS: 49320; 59812; 99284; 36415; 88305; 80053; 85025; 85610; 85730; 84702; 87635; G0378; J2250; J1100; J9260; J2710; J2405; J0690; J2001; J3010; J1170 ×2; J0330; J1741; J2704

== ENCOUNTER 2020-12-07 05:19 | Emergency (ER) | payer MEDICAID ==
[2020-12-07 05:30] VITALS: BP 128/85; PULSE 68; RESP 16; TEMP 98.4
--- NOTE | 2020-12-07 06:28 | ED ---
Lower Extremity Injury HPI - General Chief Complaint: Extremity Injury, Lower Stated Complaint: Left foot injury Time Seen by Provider: 12/07/20 05:58 Source: patient, RN notes reviewed Mode of arrival: wheelchair Limitations: no limitations - History of Present Illness Initial Comments: Is a 25-year-old female presents emergency Department chief complaint of left foot, right ankle injury. Patient states [place] and injured her foot and ankle. Patient states get up around 3:30 AM bathroom and noticed increasing pain. She noticed some bruising on her left foot. Patient denies any prior fractures or injuries to her feet prior to this. Patient denies any paresthesias. Patient offers no other complaints. - Related Data Home Medications Medication Instructions Recorded Confirmed Dextroamphetamine/Amphetamine 30 mg PO DAILY PRN 09/06/20 09/06/20 [Adderall Xr] Allergies Allergy/AdvReac Type Severity Reaction Status Date / Time No Known Allergies Allergy Verified 12/07/20 05:30 Review of Systems ROS Statement: Those systems with pertinent positive or pertinent negative responses have been documented in the HPI. ROS Other: All systems not noted in ROS Statement are negative. Past Medical History Past Medical History: No Reported History Additional Past Medical History / Comment(s): Factor V Leiden deficiency , preeclampsia History of Any Multi-Drug Resistant Organisms: None Reported Past Surgical History: Appendectomy Additional Past Surgical History / Comment(s): BMT- CHILD Past Anesthesia/Blood Transfusion Reactions: No Reported Reaction Additional Past Anesthesia/Blood Transfusion Reaction / Comment(s): no hx of blood transfusion Past Psychological History: ADD/ADHD Smoking Status: Never smoker Past Alcohol Use History: Occasional Past Drug Use History: None Reported - Past Family History Mother Sister(s) Additional Family Medical History / Comment(s): mom and sister have factor v as well General Exam Limitations: no limitations General appearance: alert, in no apparent distress Head exam: Present: atraumatic, normocephalic, normal inspection Respiratory exam: Present: normal lung sounds bilaterally. Absent: respiratory distress, wheezes, rales, rhonchi, stridor Cardiovascular Exam: Present: regular rate, normal rhythm, normal heart sounds. Absent: systolic murmur, diastolic murmur, rubs, gallop, clicks Extremities exam: Present: other (Left foot there is tenderness over the first MTP region, first digit no proximal foot tenderness or ankle tenderness in the left, right ankle mild times with pressure no swelling no deformity no foot tenderness no proximal tib-fib tenderness) Course Vital Signs 12/07/20 05:28 Temperature 98.4 F Pulse Rate 68 Respiratory 16 Rate Blood Pressure 128/85 O2 Sat by Pulse 96 Oximetry Medical Decision Making - Medical Decision Making X-ray of the right ankle is unremarkable, x-ray of the left foot shows fracture of the first digit in the proximal phalange Disposition Clinical Impression: Fracture of proximal phalanx of toe of left foot Disposition: HOME SELF-CARE Condition: Stable Instructions (If sedation given, give patient instructions): Toe Fracture (ED) Additional Instructions: Please return to the Emergency Department if symptoms worsen or any other concerns. Is patient prescribed a controlled substance at d/c from ED?: No Referrals: Eula Lopez MD [Primary Care Provider] - 1-2 days Time of Disposition: 06:28
--- NOTE | 2020-12-07 06:33 | XR ---
EXAMINATION TYPE: XR foot complete LT DATE OF EXAM: 12/07/2020 COMPARISON: NONE HISTORY: Injury and pain TECHNIQUE: Review FINDINGS: There is nondisplaced oblique fracture through the shaft of the proximal phalanx of the big toe left foot. There is no dislocation. Metatarsals are intact. IMPRESSION: Nondisplaced big toe fracture as above.
--- NOTE | 2020-12-07 06:33 | XR ---
EXAMINATION TYPE: XR ankle complete RT DATE OF EXAM: 12/07/2020 COMPARISON: NONE HISTORY: Pain TECHNIQUE: 3 views FINDINGS: Ankle mortise is anatomic. I see no fracture nor dislocation. Joint spaces are normal. IMPRESSION: Negative right ankle exam.
== END 2020-12-07 07:09 | disposition home or self-care (01) ==
LOC: EC 05:19
DX: S92.415A Nondisplaced fracture of proximal phalanx of left great toe, initial encounter for closed fracture (principal); X50.1XXA Overexertion from prolonged static or awkward postures, initial encounter; Y92.832 Beach as the place of occurrence of the external cause; Y93.02 Activity, running
CPT/HCPCS: 99283

== ENCOUNTER 2022-01-26 11:20 | Day surgery (SDC) | payer MEDICAID ==
[2022-01-21 14:18] VITALS: BMI 24.2
[~2022-01-26 11:20] MED LIST changes: +DEXAMETHASONE SOD PHOSPHATE 4 MG/ML 1 ML VIAL IV ONE; -HYDROcodone/APAP 5-325MG 1 EACH TAB PO ONE; +HYDROmorphone 0.5 MG/0.5 ML SYRINGE IVP PRN; +LACTATED RINGERS 1,000 ML IV SCH; +ONDANSETRON 4 MG/2 ML VIAL IVP ONE; +Pre Op ABX Message 1 EACH MISC MISCELLANE ONE
[2022-01-26 11:36] VITALS: TEMP 96.8
[2022-01-26] MEDS ORDERED: SCOPOLAMINE 1 MG/72 HR PATCH TRANSDERM ONE (11:50)
[2022-01-26] MEDS ORDERED: MIDAZOLAM 2 MG/2 ML VIAL ONE (12:09)
[2022-01-26] MEDS ORDERED: fentaNYL (PF) 50 MCG/ML 2 ML AMP ONE (12:09)
[2022-01-26] MEDS ORDERED: PROPOFOL 10 MG/ML 20 ML VIAL IV ONE (12:09)
[2022-01-26] MEDS ORDERED: BUPIVACAINE (PF) 0.5% 30 ML VIAL SQ ONE ×2 (12:25)
[2022-01-26] MEDS ORDERED: LIDOCAINE 1%-EPI 1:100,000 20 ML VIAL SQ ONE ×2 (12:25)
[2022-01-26 12:56] VITALS: RESP 16
--- NOTE | 2022-01-26 13:13 | P.OP ---
Date of Procedure: 01/26/22 Preoperative Diagnosis: Left hand metacarpal boss Postoperative Diagnosis: Same Procedure(s) Performed: Left hand metacarpal boss excision Anesthesia: MAC, local Surgeon: Shannon Yadav Estimated Blood Loss (ml): 2 Condition: stable Disposition: PACU Indications for Procedure: Mya is a 26-year-old female who has noticed a bump on the back of her hand. Her tendons have begun to snap over it and it is becoming quite painful. We had a long discussion about her treatment options and she would like to have this metacarpal boss removed. Description of Procedure: Patient, operative extremity, and procedure were identified in the preoperative holding area. After informed consent was obtained the patient was brought back to the operating room. The extremity was prepped and draped in normal sterile fashion of the tourniquet along the patient's brachium. Following a formal t imeout local block was performed with 1% lidocaine with epinephrine and half percent Marcaine. A transverse incision was made over the bump on the dorsum of her hand. Initially it was thought that it was at the base of the second metacarpal but dissection revealed that it was at the base of the third metacarpal. The cutaneous nerves and extensor tendons were all carefully retracted. The wrist extensor tendons were also identified and carefully protected. The ECRB was split longitudinally to access the metacarpal boss. A small osteotome was then introduced and the prominent aspect of the dorsal metacarpal was removed. Finger palpation revealed a couple sharp edges and these were smoothed out with a rongeur. The wrist was then taken through a full range of motion and the extensor tendons were no longer snapping. Patient was aroused by the anesthesia team and she actively moved her wrist and fingers to attempts to re-create the snapping. She was made unable to do so. He was sta sis was achieved and the wound was closed with 4-0 Monocryl and skin glue. Wound was dressed with 4 x 4's Adaptic cast padding and a volar splint. Patient was brought back to PACU in stable condition.
[2022-01-26 13:26] VITALS: BP 104/69; PULSE 56
== END 2022-01-26 13:43 | disposition home or self-care (01) ==
LOC: OR 11:20
PROVIDERS: ATTEND Orthopaedic Surgery Hand Surgery
DX: M25.832 Other specified joint disorders, left wrist (principal); D68.51 Activated protein C resistance
CPT/HCPCS: 81025; 26230; J1100; J2405; 88305; 88311